=== PATIENT | female | born 1985 | race Caucasian/White ===

== ENCOUNTER 2017-08-20 14:13 | Emergency (ER) | payer BC, OTHER ==
[2017-08-20] MEDS ORDERED: Aspirin 325 MG Tab PO ONE (14:31)
[2017-08-20] MEDS ORDERED: Aspirin 81 MG Tab.Chew PO ONE (14:34)
[2017-08-20 14:54] VITALS: BP 127/78
[2017-08-20] MEDS ORDERED: Sodium Chloride 0.9% 1,000 ML IV ONE (15:04)
--- NOTE | 2017-08-21 09:28 | CR ---
INDICATION: Chest heaviness. Insulin pump - diabetic. CHEST: An AP portable view of the chest revealed the heart, mediastinum, and bony thorax to be unremarkable. An active infiltrate or effusion was not identified. Overlying EKG leads are noted. IMPRESSION: No active disease. MTDD
--- NOTE | 2017-08-23 09:40 | ER ---
DATE SEEN: 08/20/2017 TIME SEEN: The patient was seen at 1445 hours. HISTORY OF PRESENT ILLNESS: Michelle is a 32-year-old, mom, 5, para 5, who has diagnosis of transposition of the great vessels. She woke up at 0500 hours with chest pain and palpitation. On 08/17/2017 she was given Z-Raymundo for bronchitis, but now she is dizzy. She felt lightheaded and has not fallen down. She has diabetes, uses insulin pump. Her diabetes has been stable. She talked to Dr. Loera on 08/17/2017, and he said "it sounds like you are smoking 2 packs of cigarettes a day" because she has so much congestion in her lungs. Congestion persisted. She has been without a fever. On 08/15/2017, she felt tired. On 08/17/2017, she had chest pain, heaviness, and palpitation. On 08/20/2017 she awoke with palpitations, chest discomfort this morning at 0500 hours. ALLERGIES: 1. Amoxil. 2. Ceclor. 3. Prozac. 4. Loratadine. 5. Penicillins. MEDICATIONS: 1. Levothyroxine 75 mcg (hypothyroidism). 2. Insulin pump, NovoLog. REVIEW OF SYSTEMS: HEENT: Patient denies headache, compromised vision, neck stiffness, sore throat, sinusitis, decreased hearing. CARDIORESPIRATORY: Denies history of pulmonary emboli. See note above regarding her cough and congestion since 08/17/2107. GI: Denies nausea, vomiting, diarrhea, constipation, change in bowels, blood in the stool, black tarry stools. Denies frequency, urgency, or dysuria or urinary tract infection. Denies kidney stones. MUSCULOSKELETAL: Denies musculoskeletal complaints or pains, joint pains, or leg swelling. PSYCHIATRIC: Negative. Not depressed. NEUROLOGIC: Negative. No seizures or headaches or paresis, weakness, or sensory changes. PHYSICAL EXAMINATION: VITAL SIGNS: Blood pressure 151/84, heart rate 98 and regular, respirations 18, oxygen saturation 98%, and also temperature 36.7 degrees centigrade. GENERAL: This is a pleasant overweight woman, who looks moderately distressed. She does look sick. She is not ashen. She has normal color. HEENT: PERRLA intact. Pharynx, mild dry mucosa. NECK: Supple. No thyromegaly. No masses in the neck. No cervical adenopathy. HEART: S1, S2. There is right greater than left systolic murmur noted. There is trace murmur that radiates to the right pectoral region. None posteriorly and none inferiorly. S2 is greater than S1. ABDOMEN: Nontender. No guarding. No rebound. Bowel sounds normal. Soft. No CVA percussion tenderness. EXTREMITIES: Lower extremities without pedal edema. Deep tendon reflexes hypoactive in upper and lower extremities. NEUROLOGICAL: Cranial nerves 2 through 12 intact. Oriented x3. Gait intact. Strength intact. LABORATORY FINDINGS: Normal white count 5700, PMNs 70, lymphocytes 20, monos 6, hemoglobin 12.7, MCV and MCH are microcytic 79.2 and 25.9, MCHC is 32.6, is normochronmic. RDW is 13.4. D-dimer 162 (does not suggest a vascular problem, turbulence, or aneurysm) and complete metabolic panel is normal except for hemoglobin A1c is 8.4, normal is 4.5-6.2, and glucose elevated at 239. Troponin less than 0.017. Urinalysis greater than 1000 glucose, greater than 150 ketones, otherwise few bacteria. ASSESSMENT: 1. Diabetes with urine ketones (raises the question even at 282 and 339 glucose can she have diabetic ketoacidosis). It is possible, and she does have diabetic ketoacidosis with ketones of 150 mg/dL. 2. Transposition of great vessels with tiredness, weakness, and mild increasing cough and shortness of breath. Suggesting increasing congestive heart failure. BNP was not performed, perhaps could shed some light on to this. 3. Mildly overweight. 4. No evidence for hyper or hypothyroidism. 5. No evidence for myocardial ischemia on the basis of troponins. PLAN: Discussed with the [facility] doctor song and dance performer Dr. Todd at 1720 hours. The patient will be transferred there for further evaluation and echo and to make sure she gets a consultation with clerical warehouse worker, make sure she does not have an early endocarditis (the EKG is not suggestive), but she has Q-waves in V1, V2, V3, V4, V5, V6, suggestion is anterior lateral infarct, and she has Q-waves inferiorly suggesting inferior infarct also. These are abnormal EKG findings probably because she has transposition of great vessels and the artifacts are normal for a person with transposition of great vessels. She has never had transposition vessel surgery. /[id number] [address]
== END 2017-08-20 18:05 ==
LOC: FB.ED 14:13
DX: E11.10 Type 2 diabetes mellitus with ketoacidosis without coma (principal); Q20.3 Discordant ventriculoarterial connection; E66.3 Overweight; Z88.0 Allergy status to penicillin; Z88.1 Allergy status to other antibiotic agents; F17.210 Nicotine dependence, cigarettes, uncomplicated
CPT/HCPCS: 36415; 71045; 80053; 81001; 83036; 83605; 84443; 84484; 85025; 85379; 87040; 87081; 87430; 87804; 93005; 96360; 99285; A9270; J7040; J7030

== ENCOUNTER 2018-12-14 23:06 | Emergency (ER) | payer BC ==
--- NOTE | 2018-12-15 02:33 | EDM.PDOC ---
ED HPI GENERAL MEDICAL PROBLEM - General Chief Complaint: Abdominal Pain Stated Complaint: STOMACH PAIN Time Seen by Provider: 12/14/18 23:40 Source of Information: Reports: Patient History Limitations: Reports: No Limitations - History of Present Illness INITIAL COMMENTS - FREE TEXT/NARRATIVE: Patient presents concerned with acute onset epigastric pain approximately an hour after eating dinner last night. She states that it lasted 1-2 hours, then was continuing into the evening. It was severe, causing her to double over and even making it difficult to breathe. She did Tylenol about 10 PM which didn't seem to help anything. She also notes a little bit of pain where her scar was from July. She has not had any heartburn. She has a past history of being a type I diabetic, using an insulin pump. She has not noticed any significant change in her sugars recently. No history of gall bladder problems, history of a tubal ligation and status post 3. Other than the pain last night, she has felt well with no fever, chills or sweats, no change in bowel habits except for mild nausea during the pain, no diarrhea. Abdominal/Epigastric Pain Score (Numeric/FACES): 6 - Related Data Allergies Allergy/AdvReac Type Severity Reaction Status Date / Time amoxicillin Allergy Swelling Verified 12/14/18 23:19 cefaclor [From Ceclor] Allergy Swelling Verified 12/14/18 23:19 fluoxetine HCl [From Prozac] Allergy Cannot Verified 12/14/18 23:19 Remember loratadine [From Claritin] Allergy Cannot Verified 12/14/18 23:19 Remember Penicillins Allergy Swelling Verified 12/14/18 23:19 Home Meds: Home Meds Insulin Aspart [NovoLOG] 70 pump SQ DAILY 04/08/16 [History] Levothyroxine 75 mcg PO SUTUTHSA 08/20/17 [History] Furosemide 20 mg PO DAILY 12/14/18 [History] Levothyroxine 75 mcg PO MOWE 12/14/18 [History] Metoprolol Tartrate 50 mg PO BID 12/14/18 [History] Past Medical History HEENT History: Reports: Impaired Vision Cardiovascular History: Reports: Other (See Below) Other Cardiovascular History: L--TRANSVERSE OF GREAT VESSELS Respiratory History: Reports: Other (See Below) Other Respiratory History: RECENTLY SEEN FOR BRONCHITIS AT THE CLINIC-GIVEN [facility] PER DR. LOERA Gastrointestinal History: Reports: None Genitourinary History: Reports: None POST DOCTORAL RESEARCHER History: Reports: Other Musculoskeletal History: DECORVEINS Neurological History: Reports: Migraines Psychiatric History: Reports: Anxiety, Depression Endocrine/Metabolic History: Reports: Diabetes, Type I, Hypothyroidism Other Endocrine/Metabolic History: On insulin pump Hematologic History: Reports: Anemia, Iron Deficiency Immunologic History: Reports: None Oncologic (Cancer) History: Reports: None Dermatologic History: Reports: None - Past Surgical History Head Surgeries/Procedures: Reports: None HEENT Surgical History: Reports: Oral Surgery Cardiovascular Surgical History: Reports: None Respiratory Surgical History: Reports: None GI Surgical History: Reports: None Female Surgical History: Reports: Section, Tubal Ligation Social & Family History - Family History Family Medical History: Noncontributory GI: Reports: Cholelithiasis - Tobacco Use Smoking Status *Q: Never Smoker - Caffeine Use Caffeine Use: Reports: Soda - Alcohol Use Alcohol Use History: No - Recreational Drug Use Recreational Drug Use: No - Living Situation & Occupation Living situation: Reports: Single, with Significant Other Social History Comment: Mother of 3 ED ROS GENERAL - Review of Systems Review Of Systems: See Below Constitutional: Denies: Fever, Chills, Malaise, Weakness HEENT: Denies: Rhinitis, Sinus Problem, Throat Pain Respiratory: Denies: Shortness of Breath, Wheezing, Pleuritic Chest Pain, Cough Cardiovascular: Denies: Chest Pain, Dyspnea on Exertion, Edema, Lightheadedness , Palpitations Endocrine: Reports: Other (type I diabetic, no significant change in sugars ) GI/Abdominal: Reports: Abdominal Pain, Nausea. Denies: Constipation, Diarrhea, Hematemesis, Hematochezia, Stool Incontinence, Vomiting : Reports: No Symptoms Musculoskeletal: Reports: No Symptoms Skin: Reports: No Symptoms Neurological: Reports: No Symptoms. Denies: Headache Hematologic/Lymphatic: Reports: No Symptoms Immunologic: Reports: No Symptoms ED EXAM, GENERAL - Physical Exam Exam: See Below Free Text/Narrative:: Gen.: Alert, pleasant 33-year-old female in no acute distress. Throat is without erythema, mucous members are moist and there's no tonsillar enlargement and face. Neck is freely movable and she has no cervical lymph adenopathy. Lungs are clear throughout with no wheezes or crackles heart is regular rate and rhythm. Abdomen positive bowel sounds, soft nondistended with right upper quadrant tenderness, no rebound or guarding. Positive [place] sign. She has no right lower quadrant tenderness, there is a scar in place which does not have any significant tenderness, no weeping or discharge?well-healed. Peripheral pulses +2 out of 4 in both the upper and lower extremities, no lower extremity edema. Strength is equal [id number]. Back is unremarkable with no costovertebral angle tenderness. Pelvic exam deferred Course - Vital Signs Text/Narrative:: Initial evaluation completed, patient with type I diabetic and concern for gallbladder findings on exam, possibly also PUD, would be at risk for gastroparesis has been type I diabetic for a long time. I'm not sure what to make of her scar pain. Will get labs, probably need either CT or right upper quadrant ultrasound Last Recorded V/S: Last Vital Signs Temp 36.5 C 12/15/18 02:50 Pulse 52 L 12/15/18 02:50 Resp 16 12/15/18 02:50 BP 132/67 12/15/18 02:50 Pulse Ox 100 12/15/18 02:50 - Orders/Labs/Meds Labs: Laboratory Tests 12/15/18 12/15/18 12/15/18 Range/Units 00:32 00:32 00:32 WBC 7.7 (4.5-12.0) X10-3/uL RBC 4.76 (3.23-5.20) x10(6)uL Hgb 12.7 (11.5-15.5) g/dL Hct 37.1 (30.0-51.3) % MCV 77.9 L (80-96) fL MCH 26.6 L (27.7-33.6) pg MCHC 34.2 (32.2-35.4) g/dL RDW 12.5 (11.5-15.5) % Plt Count 270 (125-369) X10(3)uL MPV 8.6 (7.4-10.4) fL Neut % (Auto) 53.3 (46-82) % Lymph % (Auto) 33.8 (13-37) % [place] % (Auto) 7.1 (4-12) % Eos % (Auto) 2 (1.0-5.0) % Baso % (Auto) 3 H (0-2) % Neut # (Auto) 4.1 (1.6-8.3) # Lymph # (Auto) 2.6 (0.6-5.0) # [place] # (Auto) 0.5 (0.0-1.3) # Eos # (Auto) 0.2 (0.0-0.8) # Baso # (Auto) 0.3 H (0.0-0.2) # Sodium 135 (135-145) mmol/L Potassium 3.6 (3.5-5.3) mmol/L Chloride 102 (100-110) mmol/L Carbon Dioxide 28 (21-32) mmol/L BUN 14 (7-18) mg/dL Creatinine 0.8 (0.55-1.02) mg/dL Est Cr Clr Drug Dosing 81.68 mL/min Estimated GFR (MDRD) > 60 (>60) BUN/Creatinine Ratio 17.5 (9-20) Glucose 293 H (80-116) mg/dL Calcium 8.6 (8.6-10.2) mg/dL Total Bilirubin 0.4 (0.1-1.3) mg/dL AST 23 (5-25) IU/L ALT 32 D (12-36) U/L Alkaline Phosphatase 82 (56-112) IU/L C-Reactive Protein < 0.2 L (0.5-0.9) mg/dL Total Protein 6.9 (6.0-8.0) g/dL Albumin 3.5 (3.5-5.2) g/dL Globulin 3.4 g/dL Albumin/Globulin Ratio 1.0 Urine HCG, Qual (NEGATIVE) 12/15/18 Range/Units 00:40 WBC (4.5-12.0) X10-3/uL RBC (3.23-5.20) x10(6)uL Hgb (11.5-15.5) g/dL Hct (30.0-51.3) % MCV (80-96) fL MCH (27.7-33.6) pg MCHC (32.2-35.4) g/dL RDW (11.5-15.5) % Plt Count (125-369) X10(3)uL MPV (7.4-10.4) fL Neut % (Auto) (46-82) % Lymph % (Auto) (13-37) % [place] % (Auto) (4-12) % Eos % (Auto) (1.0-5.0) % Baso % (Auto) (0-2) % Neut # (Auto) (1.6-8.3) # Lymph # (Auto) (0.6-5.0) # [place] # (Auto) (0.0-1.3) # Eos # (Auto) (0.0-0.8) # Baso # (Auto) (0.0-0.2) # Sodium (135-145) mmol/L Potassium (3.5-5.3) mmol/L Chloride (100-110) mmol/L Carbon Dioxide (21-32) mmol/L BUN (7-18) mg/dL Creatinine (0.55-1.02) mg/dL Est Cr Clr Drug Dosing mL/min Estimated GFR (MDRD) (>60) BUN/Creatinine Ratio (9-20) Glucose (80-116) mg/dL Calcium (8.6-10.2) mg/dL Total Bilirubin (0.1-1.3) mg/dL AST (5-25) IU/L ALT (12-36) U/L Alkaline Phosphatase (56-112) IU/L C-Reactive Protein (0.5-0.9) mg/dL Total Protein (6.0-8.0) g/dL Albumin (3.5-5.2) g/dL Globulin g/dL Albumin/Globulin Ratio Urine HCG, Qual Negative (NEGATIVE) - Re-Assessments/Exams Free Text/Narrative Re-Assessment/Exam: Labs returned, unremarkable except for elevated glucose at 293. Patient states she did make an adjustment with her insulin pump today and probably needs to make another correction. Abdominal exam similar to prior. Unlikely to be infectious, will get a right upper quadrant ultrasound. Free Text/Narrative Re-Assessment/Exam: Ultrasound completed, reportedly unremarkable. Patient reports that her pain is entirely gone at this point. Discussed follow-up with PCP for possible further workup especially given her history of diabetes. Recommended trying antacids in the meantime if pain recurs to see if there is more likely a peptic ulcer component. Advised against NSAIDs, but okay to take Tylenol. Recommended avoid PPI at this time in case PCP once a test for H. pylori. Discussed signs or symptoms that should prompt need for immediate return to the emergency room. She is in agreement with this plan and has no further questions Departure - Departure Time of Disposition: 02:43 Disposition: Home, Self-Care 01 Condition: Good Clinical Impression: Abdominal pain - Discharge Information *PRESCRIPTION DRUG MONITORING PROGRAM REVIEWED*: Not Applicable *COPY OF PRESCRIPTION DRUG MONITORING REPORT IN PATIENT MEGHNA: Not Applicable Instructions: Abdominal Pain, Adult Referrals: Nikolay Loera MD [Primary Care Provider] - Forms: ED Department Discharge Additional Instructions: if pain recurs, can try zantac or pepcid (or equivalent, no omeprazole) tums pepto-bismol these can also be taken in combination. They will not really help with pain from gallbladder, which has to stop on its own if persistent pain, feeling unwell, FEVER, blood in vomit or stool, or feeling lightheaded, return to ER call Dr. Henry Sunday am and schedule to determine followup plan
[2018-12-15 02:57] VITALS: BP 132/67
--- NOTE | 2018-12-16 12:11 | US ---
INDICATION: Right upper quadrant tenderness. RIGHT UPPER QUADRANT/GALLBLADDER ULTRASOUND: Multiple ultrasonic images were obtained 12/15/18 - no comparisons. Full echogenic foci are noted in the anterior inferior right lobe of the liver, compatible with hemangiomas, and others seen more laterally and posteriorly. The liver appears to be slightly echogenic, raising question of a fatty liver. No other focal liver lesions were seen. These probable hemangiomas measure up to 24 mm. The common bile duct was normal in caliber at 2.3 mm. The gallbladder had a double walled appearance, which may be due to relative contraction - it measured only 4.8 x 1.2 x 1.1 cm. No calculi or sludge were present. No evidence of a positive ultrasonic [place] sign or pericholecystic fluid was seen. The double walled appearance may simply be on the basis of relative contraction. The right kidney had a normal appearance, measuring 10.3 x 3.9 x 6.3 cm. The pancreas was not well seen. No mass lesions or free fluid collections were suggested. IMPRESSION: 1. Thick-walled gallbladder is suggested. It could be on the basis of contraction or possibly a process such as cholesterolosis and should be correlated clinically. 2. The pancreas was not well seen. 3. Echogenic foci in the liver likely represent hemangiomas. These could be re -evaluated to confirm stability either by ultrasound or with a CT scan dynamic to further evaluate the nature of these echogenic lesions. [facility]
== END 2018-12-15 02:55 | disposition home or self-care (01) ==
LOC: FB.ED 23:06
DX: R10.13 Epigastric pain (principal); F41.9 Anxiety disorder, unspecified; F32.9 Major depressive disorder, single episode, unspecified; E10.9 Type 1 diabetes mellitus without complications; E03.9 Hypothyroidism, unspecified; Z88.1 Allergy status to other antibiotic agents; Z88.8 Allergy status to other drugs, medicaments and biological substances; Z79.4 Long term (current) use of insulin; Z79.899 Other long term (current) drug therapy
CPT/HCPCS: 36415; 76705; 80053; 81025; 85025; 86140; 99284-25